=== PATIENT | male | born 2000 | race Caucasian/White ===

== ENCOUNTER 2019-02-22 15:35 | Emergency (ER) | payer MEDICAID, OTHER ==
[~2019-02-22] VITALS: Ht 175.3 cm; Wt 75.0 kg
[~2019-02-22 15:35] MED LIST: ALBU8.5H8 IH
--- NOTE | 2019-02-22 17:07 | NUR ---
PT CURRENTLY IN BED 11 WITH TWO FAMILY MEMBER, MIKE ÓSCAR POLANCO HAVING PT CHANGE TO GREEN SCRUBS, COMPLETING BELONGING LIST AND LOCK UP ITEM, PT IS GIVING FAMILY MEMBER SOME PERSONAL BELONGINGS, THEN PT WILL BE MOVED TO BED 09 WHICH HAS BEEN APPROPRIATELY SECURED FOR A 1799 HOLD.
[2019-02-22 17:09] LABS: BASOPHILS # (AUTO) 0.1 X10'3 (0-0.2); BASOPHILS % (AUTO) 0.5 % (0-1); EOSINOPHILS # (AUTO) 0.4 X10'3 (0-0.9); EOSINOPHILS % (AUTO) 2.8 % (0-6); HEMATOCRIT 40.8 % (42.0-52.0); HEMOGLOBIN 14.1 g/dl (14.0-17.9); LYMPHOCYTES # (AUTO) 3.4 X10'3 (1.1-4.8); LYMPHOCYTES % (AUTO) 27.1 % (21-51); MEAN CORPUSCULAR HEMOGLOBIN 29.7 PG (27.0-31.0); MEAN CORPUSCULAR HGB CONC 34.6 g/dL (33.0-36.5); MEAN CORPUSCULAR VOLUME 85.7 FL (78-98); MEAN PLATELET VOLUME 7.2 FL (7.4-10.4); MONOCYTES # (AUTO) 0.8 X10'3 (0-0.9); MONOCYTES % (AUTO) 6.2 % (2-12); NEUTROPHILS # (AUTO) 7.9 X10'3 (1.8-7.7); NEUTROPHILS % (AUTO) 63.4 % (42-75); PLATELET COUNT 348 X10'3 (140-440); RED BLOOD COUNT 4.75 X10'6 (4.70-6.10); RED CELL DISTRIBUTION WIDTH 13.4 % (11.5-14.5); WHITE BLOOD COUNT 12.5 X10'3 (4.5-11.0)
[2019-02-22 17:21] LABS: ALANINE AMINOTRANSFERASE 51 U/L (12-78); ALBUMIN 4.2 G/DL (3.4-5.0); ALBUMIN/GLOBULIN RATIO 1.2 (1.1-1.5); ALKALINE PHOSPHATASE 81 IU/L (20-180); ANION GAP 9 (8-16); ASPARTATE AMINO TRANSFERASE 50 U/L (10-37); BILIRUBIN,TOTAL 0.4 MG/DL (0.1-1.0); BLOOD UREA NITROGEN 14 MG/DL (7-18); BUN/CREATININE RATIO 13.1 (5.4-32.0); CHLORIDE 105 MMOL/L (99-107); CREATININE 1.07 MG/DL (0.60-1.10); GLUCOSE 90 MG/DL (70-104); POTASSIUM 3.8 MMOL/L (3.5-5.1); SODIUM 140 MMOL/L (135-145); TOTAL CARBON DIOXIDE 26.3 MMOL/L (24-32); TOTAL PROTEIN 7.6 G/DL (6.4-8.2); eGFR 88 ML/MIN
[2019-02-22 17:25] LABS: ETHANOL < 0.010 GM/DL (0.0-0.010)
--- NOTE | 2019-02-22 17:32 | NUR ---
PACKET FAXED TO [facility]
--- NOTE | 2019-02-22 17:41 | NUR ---
DR ALMEIDA DOES NOT WANT A UA NOT A TSH
[2019-02-22 18:17] LABS: URINE AMPHETAMINE SCREEN NEGATIVE (Neg); URINE BARBITUATE SCREEN NEGATIVE (Neg); URINE BENZODIAZEPINES SCREEN NEGATIVE (Neg); URINE CANNABINOID SCREEN POSITIVE (Neg); URINE COCAINE SCREEN NEGATIVE (Neg); URINE METHADONE SCREEN NEGATIVE (Neg); URINE OPIATE SCREEN NEGATIVE (Neg); URINE PHENCYCLIDINE SCREEN NEGATIVE (Neg)
--- NOTE | 2019-02-22 18:30 | NUR ---
REPORT FROM LISETH GALLARDO; PATIENT IN ROOM 9 IN GREEN SCRUBS WITH HIS HALF BROTHER AND HIS BEST FRIEND: PATIENT HAS HIS CELL PHONE AT BEDSIDE: DISCUSSED THE RULES AND ASKED PATIENT IF HE HAS PHONE NUMBERS HE WOULD LIKE TO RETRIEVE FROM HIS PHONE. PATIENT STATED THAT HE DID NOT NEED ANY NUMBERS
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
--- NOTE | 2019-02-22 19:30 | NUR ---
Nicho Waterproof: half brother: [phone] took his cell phone and wallet home. Patient lives with Nicho and his best friend Marc Robles
--- NOTE | 2019-02-22 20:02 | NUR ---
SPOKE TO ANGÉLICA TALBERT AT [facility] AT HIS OFFICE NUMBER [id number]. TYRELL WILL COME AND EVALUATE THE PATIENT
--- NOTE | 2019-02-22 21:28 | NUR ---
Rcvd report from Conchis GALLARDO, pt arrived in ED overflow, assumed care. Pt reports he is here for s/i, continues to endorse s/i. pt is able to contract for safety stating "theres nothing here I can hurt myself with." Pt is resting comfortably rr even and unlabored.
[2019-02-22] MEDS ORDERED: olanzapine 10mg tablet PO SCH (21:35)
[2019-02-22] MEDS: LORazepam 1 MG tablet PO PRN (21:44)
--- NOTE | 2019-02-22 21:46 | NUR ---
Pt started on zyprexa and ativan prn per Quang LINDSAY. Pt states he is suicidal because "i lost my mom and dad and watched my best friend ." pt reports hearing derogatory voices telling him he is "no good, but I've heard voices and seen things my whole life, so that's not new for me, I just want out of this world." Pt adds when he took meds in the past he was able to keep a job. Pt reports he has not been able to sleep becaus he hasnt been taking meds. Pt is tearful, hopeless, depressed. Pt is med compliant. He is currently laying on his back resting w/eyes open. RR even and unlabored.
--- NOTE | 2019-02-22 23:24 | NUR ---
Pt is laying on his back asleep in bed. RR even and unlabored no s/s of distress.
--- NOTE | 2019-02-23 01:43 | NUR ---
Pt is laying on his back sleeping, no s/s distress rr 14
--- NOTE | 2019-02-23 05:53 | NUR ---
Pt laying in bed sleeping. RR even and unlabored no s/s distress.
[2019-02-23 06:05] VITALS: BP 111/62
--- NOTE | 2019-02-23 06:23 | NUR ---
Received report from Lisy GALLARDO.
--- NOTE | 2019-02-23 11:00 | NUR ---
[facility] speaking with patient at bedside.
--- NOTE | 2019-02-23 12:00 | NUR ---
Behav[facility] paged regarding medication evaluation/med reconcilliation. Awaiting call back.
[2019-02-23] MEDS ORDERED: ALBU8.5H8 INH (12:51)
[2019-02-23] MEDS: LORazepam 1 MG tablet PO PRN (15:19)
[2019-02-23] MEDS ORDERED: OLANZAPINE 5 MG TABLET PO ONE (15:20)
--- NOTE | 2019-02-23 15:43 | NUR ---
Spoke with nurse from [facility] stating they accepted patient. Informed Charge nurse who stated she would speak with the MD to get discharge in process.
[2019-02-23] MEDS ORDERED: OLANZAPINE 5 MG TABLET PO SCH (21:00)
== END 2019-02-23 16:35 ==
LOC: ER 15:35
DX: R45.851 Suicidal ideations (principal); M79.89 Other specified soft tissue disorders; F41.9 Anxiety disorder, unspecified; F32.9 Major depressive disorder, single episode, unspecified; F12.90 Cannabis use, unspecified, uncomplicated; Z79.899 Other long term (current) drug therapy
CPT/HCPCS: 36415; 80053; 80305; 80320; 85025; 99284; 99285; J3490

== ENCOUNTER 2019-02-23 16:08 | Inpatient (IN) | payer MEDICAID ==
[~2019-02-23] VITALS: Ht 177.8 cm; Wt 77.4 kg
[~2019-02-23 16:08] MED LIST changes: +ALBU8.5H8 INH
[2019-02-23] MEDS ORDERED: acetaminophen 325mg tablet PO PRN ×2 (16:45)
[2019-02-23] MEDS ORDERED: tuberculin, purif. prot. deriv. 5 units/0.1ml ID ONE (16:45)
[2019-02-23] MEDS ORDERED: mag hydrox/Alum hydrox/simeth 30ml oral suspension PO PRN (16:45)
[2019-02-23] MEDS ORDERED: loperamide 2mg capsule PO PRN (16:45)
[2019-02-23] MEDS ORDERED: magnesium hydroxide 30ml (MOM) UD suspension PO PRN (16:45)
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
[2019-02-23 20:00] VITALS: BP 154/88
[2019-02-23] MEDS: LORazepam 1 MG tablet PO PRN (21:48)
[2019-02-23] MEDS: OLANZapine 2.5MG tablet PO SCH (21:56)
--- NOTE | 2019-02-24 03:37 | NUR ---
Nursing Progress Note: Legal hold: 5150 Exp 02/26 @ 1640 Client on involuntary status for DTS. Report received from nurse with use of Violeta YORK CRN Why are they here: Patient presented to the ER on 01/22/19 for danger to self, reporting that he just wanted to and wanted to drink bleach. Patient has a HX of multiple suicide attempts via hanging and overdosing. Patient states he attempted suicide about 1 month ago [place] ED UTox (+) for THC. Patient reports he was diagnosed with Paranoid Schizophrenia and has not been taking meds for the last year. Assessment What has happened this shift: Pt in group room at beginning of shift watching T.V and interacting appropriately with other clients. Pt. is pleasant. Pt denies SI at the moment, states "usually after my break I calm down." Pt. states he had a job, but wasn't able to function and became frustrated. Pt. has been off his meds for about a year. Pt. reports he is still hearing voices, but they are quiet. When he hears the voices they are tell him "you are worthless, you are a failure, you should kill yourself." Pt reports his visual hallucinations are shadows on the wall, he reports that he has seen these types of shadows since he was a little boy. Pt has a good support system. He lives with his brothers and they are all for him getting help. Pt states he feels safe here and hopes to get his medication adjusted, so he can look for a job. Reassured pt he is worth it. S/I, H/I: Pt denies. 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 Were meds taken: Medication compliant Any med S/E: None reported or observed Mental Status Exam Appearance: Clean and neat Eye contact: Good Behavior: Cooperative, anxious Speech: Normal rate and rhythm Mood: Anxious Affect: Blunted with some brightening Thought process: Linear Thought Content: Getting medication adjusted Cognition: A&O x4 Insight: Fair Judgment: Fair Interventions PRN's used: Ativan Therapeutic interventions: 1:1 therapeutic assessment, medication administration/education/ monitoring as ordered, provided active listening with positive feedback Restraints/seclusion/emergency medication: None Justification of Continued Inpatient Treatment: Pt requires therapeutic support and medication stabilization to prevent decompensation. Pt unable to formulate a viable safety plan and is a danger to himself.
--- NOTE | 2019-02-24 03:41 | NUR ---
Pt smokes marijuana Addendum: 02/24/19 at 0343 by Sarah Hernández RN Amended: Links added.
[2019-02-24 07:18] LABS: CHOL/HDL RATIO 3.4 (0.00-4.99); CHOLESTEROL 149 MG/DL (0-200); HDL CHOLESTEROL 44 MG/DL (35-60); LDL CHOLESTEROL 94 MG/DL (50-100)
[2019-02-24] MEDS: OLANZapine 2.5MG tablet PO SCH ×3 (07:37→21:26)
[2019-02-24 07:41] LABS: HEMOGLOBIN A1C 5.5 % (4.5-6.2)
[2019-02-24 07:51] VITALS: BP 152/88
[2019-02-24 08:43] LABS: TRIGLYCERIDES 97 MG/DL (20-135)
--- NOTE | 2019-02-24 11:03 | NUR ---
Nursing Progress Note: Legal hold: 5150 Exp 02/26 @ 1640 Client on involuntary status for DTS. Report received from nurse with use of JAYLEN, BILLY Londono Why are they here: Patient presented to the ER on 01/22/19 for danger to self, reporting that he just wanted to and wanted to drink bleach. Patient has a HX of multiple suicide attempts via hanging and overdosing. Patient states he attempted suicide about 1 month ago by [place] [address] ED UTox (+) for THC. Patient reports he was diagnosed with Paranoid Schizophrenia and has not been taking meds for the last year. 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 Pt admits to AH, derogatory voices that tell him things like he is worthless or will never amount to anything. Pt states that he usually can distinguish hallucinations from reality however, it becomes more difficult to differentiate when he is feeling anxious from being around people. Pt states that he sees trails of light out of the corner of his eyes and sometimes thinks he sees his friends out of the corner of his eyes as well. Pt perseverates on conspiracy theories. He stated that "microorganisms turn you into robots." Pt spoke of "Smart dust," metal coming out of your skin, and cell towers putting out radioactive energy, "they're going to kill us all." Pt went out on patio for outside time later in the morning. PCT reported that he was fine at first, interacting appropriately then all of a sudden he just shut down. He turned around and faced the wall with his back to everybody, he had a very small piece of twig he had found and he was scratching it on the ground rapidly back and forth. Another pt asked him if he was okay and he replied, "no, I'm not okay...I want to slam my head into this wall." Pt then quickly jumped up, lifted his hair up off of his forehead and said, "look right here, this is where I smashed my head into a steel door 32 times and didn't knock myself out!" Pts were then escorted back to the unit by staff and security. Pt had a female visitor waiting for him. Pt interacted calmly and appropriately with visitor. S/I, H/I: Pt denies A/VH: Pt is hearing derogatory voices and seeing things out of the corner of his eyes Sleep: Pt stated that he slept like a baby ADL's: Independent, pt showered this morning Group attendance: Yes Were meds taken: Yes Any med S/E: None reported or observed Mental Status Exam Appearance: neat, clean, well groomed young man Eye contact: Good Behavior: Cooperative, anxious, did not wish to take prn anxiety medication this morning Speech: Normal rate and rhythm Mood: Anxious, depressed Affect: anxious Thought process: Linear, paranoid, perseverative Thought Content: Pt preoccupied with conspiracy theories, ruminates on social anxiety Cognition: A/O x4 Insight: Fair Judgment: Fair Interventions PRN's used: None so far this shift Therapeutic interventions: 1:1 assessment, establishment of rapport, therapeutic conversation, medication administration/education, education on unit rules and procedures, symptom identification and management, Q 15 min safety checks Restraints/seclusion/emergency medication: None Justification of Continued Inpatient Treatment: Pt needs interruption of current crisis with initiation and adjustment of medication in a safe and therapeutic environment.
[2019-02-24] MEDS: hydrOXYzine 25 MG tablet PO PRN (13:06)
[2019-02-24 19:00] VITALS: BP 143/76
[2019-02-24] MEDS: LORazepam 1 MG tablet PO PRN (22:04)
--- NOTE | 2019-02-25 02:08 | NUR ---
Nursing Progress Note: Legal hold: 5150 Exp 02/26 @ 1640 Client on involuntary status for DTS. Report received from nurse with use of Violeta YORK CRN Why are they here: Patient presented to the ER on 01/22/19 for danger to self, reporting that he just wanted to and wanted to drink bleach. Patient has a HX of multiple suicide attempts via hanging and overdosing. Patient states he attempted suicide about 1 month ago by [place] [address]. ED UTox (+) for THC. Patient reports he was diagnosed with Paranoid Schizophrenia and has not been taking meds for the last year. Assessment What has happened this shift: Pt was just coming out of his room at shift change. Pt states he took a nap, he had been feeling anxious throughout the day. Pt reports he is feeling better. Pt. socializes with another client around his age. Pt appears to get along well on the unit. 1:1 assessment was completed at bedside. Pt shares how he want to be counselor and help people "I am happy when I make people happy." Reminded pt that his happiness is also important. Pt denies SI. Positive for AH, pt states he always hears voices in the background. Tonight they are minimal. Pt's VH are intermittent "it is the shadwo people that bother me when I see them." Pt is having optimistic thoughts about his life and how he wants to change it and is grateful for the support he has. Pt's affect is incongruent to this optimism. Pt states he hasn't had a BM since 02/22, pt declined MOM. S/I, H/I: Pt denies. None observed A/VH: Voices are minimal, but derogatory. No "shadow people" seen. 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 Were meds taken: Medication compliant Any med S/E: None reported or observed Mental Status Exam Appearance: Clean and neat Eye contact: Good Behavior: Cooperative, anxious, Speech: Normal rate and rhythm Mood: Anxious, depressed Affect: Incongruent with depression Thought process: Linear Thought Content: Getting medication adjusted Cognition: A&O x4 Insight: Fair Judgment: Fair Interventions PRN's used: Ativan Therapeutic interventions: 1:1 therapeutic assessment, medication administration/education/ monitoring as ordered, provided active listening with positive feedback Restraints/seclusion/emergency medication: None Justification of Continued Inpatient Treatment: Pt requires therapeutic support and medication stabilization to prevent decompensation. Pt unable to formulate a viable safety plan and is a danger to himself.
[2019-02-25] MEDS: OLANZapine 2.5MG tablet PO SCH ×2 (07:45→12:54)
[2019-02-25] MEDS: hydrOXYzine 25 MG tablet PO PRN ×2 (07:46→20:55)
[2019-02-25 08:00] VITALS: BP 126/84
[2019-02-25] MEDS: LORazepam 1 MG tablet PO PRN ×2 (12:59→19:01)
--- NOTE | 2019-02-25 14:18 | NUR ---
Nursing Progress Note: Legal hold: 5150 Exp 02/26 @ 1640 Client on involuntary status for DTS. Report received from nurse with use of JAYLEN, BILLY Londono Why are they here: Patient presented to the ER on 01/22/19 for danger to self, reporting that he just wanted to and wanted to drink bleach. Patient has a HX of multiple suicide attempts via hanging and overdosing. Patient states he attempted suicide about 1 month ago by [place] [address]. ED UTox (+) for THC. Patient reports he was diagnosed with Paranoid Schizophrenia and has not been taking meds for the last year. Assessment What has happened this shift: Pt rated his depression this am at an 8/10, denied SI/HI. Pt continues to experience AH/VH, states "always...they never go away, even when I was on Zyprexa before for a long time." Pt is mostly pleasant and cooperative though has lots of energy and is impulsive and easily triggered at times. Pt observed doing karate kicks in the hallway just after shift change, asked him to tone it down, pt complied. Pt observed sitting on the floor in the corner of the hallway outside the community room before breakfast. He had his head down against his folded elbows. Asked the pt what was wrong. He stated that he wanted to watch U-tube on the TV in the rec room and was told that he had to wait until after breakfast. He verbalized in a sarcastic tone of voice, "but nooooo, we can't be treated like normal people, we can't be trusted with the remote." Educated pt on unit rules and some of the reasons for them. Pt stated that music is the only thing that helps him. Offered to provide him the radio headphones after breakfast, he declined as he would not be able to choose the songs he wanted to hear. Pt took his meds as well as prn Atarax 50 mg at 0746. After breakfast, pt approached this RN to say that someone had left their bloody rags in the community room near the games. Upon investigation noted a couple of torn and wadded up pieces of paper that looked to have been someone's drawing with brown and red crayon. Reality orientation provided to the pt, pt agreed that it was just paper. SW approached this nurse around 1000 and stated that the pt had reopened the area on his arm. Went to assess the pt. Large scab on right elbow was somewhat open and bleeding. Asked pt what had happened, he replied that he couldn't stop picking at it. Cleansed area with NS, applied bacitracin and dry dressing. Educated pt on infection control, pt expressed understanding. Pt requested a prn for anxiety at lunch time, administered Ativan 1 mg PO at 1300 with good effect. Pt wanting a shower at this time, removed dressing right elbow instructed pt to cleanse area with soap and water in the shower, will apply a transparent dressing once pt out of shower. S/I, H/I: Pt denies A/VH: Pt states that he "always" has hallucinations, continues to hear derogatory voices and see lights and shadows out of the corner of his eyes. Sleep: Pt reported sleeping well, slept 5.5 hours per noc shift report ADL's: Independent, pt showered this morning Group attendance: Yes Were meds taken: Yes Any med S/E: None noted or reported Mental Status Exam Appearance: neat, clean young man Eye contact: Good Behavior: cooperative, polite, impulsive,easily frustrated; shuts down at times, will sit down on the floor/squat down in a ball and block out his surroundings. Speech: Clear, audible, talkative, uses manners; says "please" and "thank you." Mood: Anxious, depressed Affect: bright, anxious Thought process: Linear, perseverative at times Thought Content: Upset he can't use the remote control himself to watch videos on U-tube, believes music is the only thing that helps him to cope with his anxiety and hallucinations. Cognition: A/O x4 Insight: Fair to good Judgment: Fair Interventions PRN's used: Atarax 50 mg @ 0746, Ativan 1 mg @ 1300 Therapeutic interventions: 1:1 assessment, active listening, therapeutic conversation, medication administration/monitoring/education, education on unit rules and procedures, limit setting, redirection, symptom identification and management, positive reinforcement, Q 15 min safety checks Restraints/seclusion/emergency medication: None Justification of Continued Inpatient Treatment: Pt has poor coping mechanisms, is impulsive and easily frustrated, & continues to have persistent auditory and visual hallucinations. He needs interruption of current crisis with initiation and adjustment of medication in a safe and therapeutic environment.
[2019-02-25 19:55] VITALS: BP 128/84
[2019-02-25] MEDS: olanzapine 10mg tablet PO SCH (20:15)
--- NOTE | 2019-02-26 03:46 | NUR ---
Client on involuntary status for DTS. Report received from nurse with use of Violeta YORK CRN Why are they here: Patient presented to the ER on 01/22/19 for danger to self, reporting that he just wanted to and wanted to drink bleach. Patient has a HX of multiple suicide attempts via hanging and overdosing. Patient states he attempted suicide about 1 month ago by [place] [address]. ED UTox (+) for THC. Patient reports he was diagnosed with Paranoid Schizophrenia and has not been taking meds for the last year. Assessment What has happened this shift: Pt reports he is feeling better. Pt. socializes with another client around his age. Pt was upset and irritable about a peer being intrusive and over talkative. 1:1 assessment was completed at bedside. Pt shares how he want to write songs to perform to make people happy.." Reminded pt that his happiness is also important. Pt denies SI. Positive for AH, pt states he always hears voices in the background. Tonight they are minimal. Pt's VH are intermittent "it is the shadwo people that bother me when I see them." Pt is having optimistic thoughts about his life and how he wants to change it and is grateful for the support he has. Pt's affect is incongruent to this optimism. Pt states he had a BM today 02/25, . S/I, H/I: Pt denies. None observed A/VH: Voices are minimal, but derogatory. No "shadow people" seen. 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 Were meds taken: Medication compliant Any med S/E: None reported or observed Mental Status Exam Appearance: Clean and neat Eye contact: Good Behavior: Cooperative, anxious, Speech: Normal rate and rhythm Mood: Anxious, depressed Affect: Incongruent with depression Thought process: Linear Thought Content: Getting medication adjusted Cognition: A&O x4 Insight: Fair Judgment: Fair Interventions PRN's used: Ativan,Atarax Therapeutic interventions: 1:1 therapeutic assessment, medication administration/education/ monitoring as ordered, provided active listening with positive feedback Restraints/seclusion/emergency medication: None Justification of Continued Inpatient Treatment: Pt requires therapeutic support and medication stabilization to prevent decompensation. Pt unable to formulate a viable safety plan and is a danger to himself.
[2019-02-26] MEDS: OLANZapine 2.5MG tablet PO SCH ×2 (07:59→12:19)
[2019-02-26 08:00] VITALS: BP 123/77
--- NOTE | 2019-02-26 09:40 | NUR ---
Nursing Progress Note: Legal hold: 5150 Exp 02/26 @ 1640 Client on involuntary status for DTS. Report received from nurse with use of Salvador YORK RN Why are they here: Patient presented to the ER on 01/22/19 for danger to self, reporting that he just wanted to and wanted to drink bleach. Patient has a HX of multiple suicide attempts via hanging and overdosing. Patient states he attempted suicide about 1 month ago by running [place] traffic [place] [address]. ED UTox (+) for THC. Patient reports he was diagnosed with Paranoid Schizophrenia and has not been taking meds for the last year. Assessment What has happened this shift: The patient was asleep at change of shift. Up for breakfast in group room with peers, joining in conversations and smiling, joking. Medication compliant, eating well. No suicidal thoughts at this time. Patient reports for "first time today I felt better when I woke up." Reports hearing voices that are "not telling me to kill myself, they just say bad things about me, like you're worthless." Also admits to shadow people and swirling circles in his peripheral vision. Asked for Ativan after breakfast due to "feeling anxious" and was pacing around the unit. Ativan 1mg was provided with good effect. Education was provided regarding the importance of continuing to take medications when discharged to avoid relapse and to recognize the voices are not real and learning to ignore them. Discussion was well received and patient asked questions and affirmed reasoning of importance of medications. S/I, H/I: Pt denies A/VH: Yes, as stated above Sleep: None ADL's: Independent Group attendance: Yes Were meds taken: Yes Any med S/E: None noted or reported Mental Status Exam Appearance: neat, clean young man Eye contact: Good Behavior: cooperative, polite, impulsive at times Speech: Clear, audible, talkative, uses manners; says "please" and "thank you." Mood: depressed Affect: bright, anxious Thought process: Linear Thought Content: hallucinations, medications Cognition: A/O x4 Insight: Fair to good Judgment: Fair Interventions PRN's used: Ativan 1mg Therapeutic interventions: 1:1 assessment, active listening, therapeutic conversation, medication administration/monitoring/education, education on unit rules and procedures, limit setting, redirection, symptom identification and management, positive reinforcement, Q 15 min safety checks Restraints/seclusion/emergency medication: None Justification of Continued Inpatient Treatment: Pt has poor coping mechanisms, is impulsive and easily frustrated, & continues to have persistent auditory and visual hallucinations. He needs interruption of current crisis with initiation and adjustment of medication in a safe and therapeutic environment.
[2019-02-26] MEDS: LORazepam 1 MG tablet PO PRN ×2 (10:01→21:05)
[2019-02-26 20:00] VITALS: BP 121/79
[2019-02-26] MEDS: olanzapine 10mg tablet PO SCH (20:10)
--- NOTE | 2019-02-27 02:54 | NUR ---
Client on involuntary status for DTS. Report received from nurse with use of Violeta YORK CRN Why are they here: Patient presented to the ER on 01/22/19 for danger to self, reporting that he just wanted to and wanted to drink bleach. Patient has a HX of multiple suicide attempts via hanging and overdosing. Patient states he attempted suicide about 1 month ago by [place] [address] ED UTox (+) for THC. Patient reports he was diagnosed with Paranoid Schizophrenia and has not been taking meds for the last year. Assessment What has happened this shift: Pt reports he is feeling better. Pt. socializes with peers around his age. Pt states that he feels better to day. " I feel like I can tell what xoices are real and whats in my head. Pt states that he woke feeling happy for the first time in awhile 1:1 assessment was completed at bedside. Pt denies SI. Positive for AH, pt states he always hears voices in the background. Tonight they are minimal. Pt's VH are intermittent "it is the shadwo people that bother me when I see them." Pt is thinking about going home. S/I, H/I: Pt denies. None observed A/VH: Voices are minimal, but derogatory. No "shadow people" seen. Sleep: Currently sleeping comfortably ADL's: Independent Group attendance: hourly shift, no group Were meds taken: Medication compliant Any med S/E: None reported or observed Mental Status Exam Appearance: Clean and neat Eye contact: Good Behavior: Cooperative, anxious, Speech: Normal rate and rhythm Mood: Anxious, depressed Affect: Incongruent with depression Thought process: Linear Thought Content: Getting medication adjusted Cognition: A&O x4 Insight: Fair Judgment: Fair Interventions PRN's used: Ativan,Atarax Therapeutic interventions: 1:1 therapeutic assessment, medication administration/education/ monitoring as ordered, provided active listening with positive feedback Restraints/seclusion/emergency medication: None Justification of Continued Inpatient Treatment: Pt requires therapeutic support and medication stabilization to prevent decompensation. Pt unable to formulate a viable safety plan and is a danger to himself.
[2019-02-27 07:19] VITALS: BP 129/71
[2019-02-27] MEDS: OLANZapine 2.5MG tablet PO SCH ×2 (07:38→12:35)
--- NOTE | 2019-02-27 08:14 | NUR ---
1:1 DISCHARGE PLANNING ANTOINE contacted [facility] regarding pt discharge planning. ANTOINE informed pt is established through [facility] as his medical home. ANTOINE informed pt has been receiving mental health services through [facility]. ANTOINE contacted [facility] to confirm pt is not fully established at this time. Kylah at [facility] stated pt could be referred to [facility] or [facility] for f/u mental health services this day. ANTOINE scheduled f/u services through [facility] (requesting mental health referral) and scheduled temporary appointments with [facility] (pt needs intensive case management, psychiatric and counseling). Ayah Mora, [id number]
[2019-02-27] MEDS ORDERED: OLAN10TA19 PO (12:03)
[2019-02-27] MEDS ORDERED: HYDR-3686 PO (12:03)
[2019-02-27] MEDS ORDERED: OLAN2.5T3 PO (12:03)
--- NOTE | 2019-02-27 15:15 | NUR ---
DISCHARGE NOTE The patient was discharged today at 1515. He left in the company of his family with all instructions, medications and belongings. Denies any suicidal thoughts. Escorted to lobby by JUDD Francis. The patietn was anxious to leave and get on with his life. Stated he understood all directions and knows when and where to go for his follow-up appt.
== END 2019-02-27 15:15 | disposition home or self-care (01) | DRG 750 ==
LOC: ADULT MH 16:08
PROVIDERS: ADMIT Psychiatry & Neurology Psychiatry; ATTEND Psychiatry & Neurology Psychiatry
DX: F25.0 Schizoaffective disorder, bipolar type (principal); R45.851 Suicidal ideations; F12.90 Cannabis use, unspecified, uncomplicated; F41.9 Anxiety disorder, unspecified; J45.909 Unspecified asthma, uncomplicated; K21.9 Gastro-esophageal reflux disease without esophagitis; Z79.899 Other long term (current) drug therapy
CPT/HCPCS: 36415; 80061; 83036; 87070; 99285; J3490; Q0177